=== PATIENT | male | born 1970 | race Caucasian/White ===

== ENCOUNTER 2021-06-10 23:16 | Emergency (ER) | payer OTHER ==
[~2021-06-10] VITALS: Ht 182.9 cm; Wt 90.7 kg
[~2021-06-10 23:16] MED LIST: IBUP800 PO
[2021-06-11] MEDS ORDERED: METH10 PO (00:02)
[2021-06-11] MEDS ORDERED: HYDHCL25 PO (00:47)
== END 2021-06-11 01:05 | disposition home or self-care (01) ==
LOC: ER 23:16
DX: F11.23 Opioid dependence with withdrawal (principal); F41.9 Anxiety disorder, unspecified; G47.00 Insomnia, unspecified; F17.210 Nicotine dependence, cigarettes, uncomplicated
CPT/HCPCS: 99281; A9270